=== PATIENT | male | born 1935 | race African-American/Black ===

== ENCOUNTER 2016-03-27 20:07 | Inpatient (IN) | payer MEDICARE, OTHER ==
--- NOTE | ~2016-03-27 | HP ---
History And Physical [facility] [address] [facility] [place] [place]. [address] NAME: MOI ARREOLA : 34 STATUS : ADM Azul PAT#: [id number] AGE: 80 ADM/REG DATE : 03/27/16 MR#: [id number] REPORT SERV DATE: 03/28/16 DICTATED BY: REYNALDO HERNANDEZ DATE: 03/28/16 REPORT STATUS : Draft TRANSCRIBED BY: MODL DATE: 03/28/16 DATE OF ADMISSION: 03/27/2016 CHIEF COMPLAINT: Fever and intractable cough. HISTORY OF PRESENT ILLNESS: This is an 80-year-old male, who presents to the emergency room at [facility] with severe intractable cough along with fever. History is obtained from the patient, and reviewing data available on the Glipho system. According to Mr. Arreola, he was in his usual state of health until yesterday when he woke up feeling poorly. He started having a febrile illness during the day and then started having a cough, which actually worsened to the point he could not even finish a sentence without coughing. His fevers increased despite the fact he took some [id number] medicines and he finally decided to come to the emergency room to be evaluated. In the emergency room, initial workup revealed he was positive for influenza A. As he is 80 years old, and also had a febrile illness along with severe intractable cough, Hospitalist Service is asked to admit him for further evaluation and treatment. At the time of my evaluation, he denied any chest pain or palpitations. He had no orthopnea. He had a severe intractable cough productive of yellowish-greenish purulent- appearing sputum, but denied any hemoptysis, night sweats, or weight loss. He denied any recent falls or loss of consciousness. He did have fevers and chills as mentioned above. No history of nausea, vomiting, diarrhea, hematemesis, hematochezia, or hematuria. No other history of recent travel or exposures. PAST MEDICAL HISTORY: Significant for history of chronic kidney disease, coronary artery disease with stent, COPD, hypertension, peptic ulcer disease with history of GI bleed, diabetes mellitus type 2. He has had back surgeries and transurethral resection of prostate as well. SOCIAL HISTORY: He does not smoke, drink, or use recreational drugs. FAMILY HISTORY: Noncontributory. MEDICATIONS: Medications at home were reviewed by me in the chart today and reordered by me. REVIEW OF SYSTEMS: As in history of present illness. All other systems were reviewed in detail and are quite unremarkable. PHYSICAL EXAMINATION: GENERAL: This is a very pleasant 80-year-old gentleman who is not in any acute distress. HEENT: His head is atraumatic and normocephalic. He is alert, awake, oriented to time, place, and person. Pupils are equal, reacting to light and accommodating. External ocular History And Physical [address] [address] NAME: MOI ARROELA : 34 STATUS : ADM Azul PAT#: [id number] AGE: 80 ADM/REG DATE : 03/27/16 MR#: [id number] REPORT SERV DATE: 03/28/16 DICTATED BY: REYNALDO HERNANDEZ DATE: 03/28/16 REPORT STATUS : Draft TRANSCRIBED BY: LEVI DATE: 03/28/16 muscles are intact. Membranes are moist and pink. Sclera is nonicteric. NECK: Supple with no jugular venous distention, lymphadenopathy, or thyromegaly. LUNGS: Auscultation of his lungs revealed coarse breath sounds bilaterally without any rales; however, it is hard to auscultate with his persistent coughing. HEART: Heart sounds were regular with no murmurs, rubs, or gallops. ABDOMEN: Soft and nontender. Bowel sounds are present. EXTREMITIES: No cyanosis, clubbing, or edema. NEUROLOGIC: Grossly intact. No focal sensory or motor deficits. Higher functions appeared intact. VITAL SIGNS: His temperature today was 99.7, pulse 106, respirations were 20 a minute, and blood pressure was 158/74, and oxygen saturations were 95%, breathing 2 L of oxygen. LABORATORY DATA: Reviewed on the Glipho system showed a sodium of 140, potassium was 4.2, chloride 106 and CO2 of 25, BUN was 21 with a creatinine of 1.64 which is about his baseline. His blood glucose was 125. His troponin today was 0.02, and BNP was 27.2. CBC showed a white blood cell count of 5, hemoglobin was 11.8, hematocrit 35, and platelet count was 140,000. His prothrombin time was 14.6 with an INR of 1.2. Influenza A was positive and B was negative. Urinalysis was not performed today. Films of the chest x-ray were reviewed by me on the PACS today and interpreted by me. Per my interpretation, there is no lobar consolidations or pleural effusions seen. A 12-lead EKG done in the emergency room was reviewed and interpreted by me. There is sinus tachycardia at a rate of [address] elevations or depressions. IMPRESSION: 1. Febrile illness. 2. Intractable cough. 3. Influenza. 4. Chronic kidney disease. 5. Diabetes mellitus. 6. Coronary artery disease with stent placement. 7. Chronic obstructive pulmonary disease. 8. Uncontrolled hypertension. PLAN: We will admit Mr. Arreola to the Hospitalist Service for a 24-hour observation period. We will obtain cultures, start him on Tamiflu which he was started in the ER. We will hold off on antibiotics at this time. Check his procalcitonin levels. We will start him on IV fluids for volume replacement and offer Tylenol for fever. We will follow his chemistry, electrolytes in the morning and replete as needed. We will also establish blood sugar control with NovoLog given subcutaneously per sliding scale and check his A1c. He will be History And Physical [address] [address] NAME: MOI ARREOLA : 34 STATUS : ADM Azul PAT#: [id number] AGE: 80 ADM/REG DATE : 03/27/16 MR#: [id number] REPORT SERV DATE: 03/28/16 DICTATED BY: REYNALDO HERNANDEZ DATE: 03/28/16 REPORT STATUS : Draft TRANSCRIBED BY: LEVI DATE: 03/28/16 on unfractionated heparin for DVT prophylaxis while he is here. We will also continue all other home medications that he is on. For his intractable cough I will offer Robitussin with Codeine as well. I have discussed the above plans with the patient. His questions were answered. He is agreeable to the above recommendations. Hospitalist Service will be following him during his stay here. /LEVI Reynaldo Hernandez M.D. / [id number] CC: Mina Chacon MD
--- NOTE | ~2016-03-27 | DS ---
Discharge Summary [facility] [address] [place]. [address] NAME: MOI EAST : 34 STATUS : DIS IN PAT#: [id number] AGE: 80 ADM/REG DATE : 03/29/16 MR#: [id number] REPORT SERV DATE: 04/03/16 DICTATED BY: MARISOL FARMER DATE: 04/02/16 REPORT STATUS : Draft TRANSCRIBED BY: LEVI DATE: 04/02/16 ADMISSION DATE: 03/29/2016 DISCHARGE DATE: 04/02/2016 CONSULTATION: None. PROCEDURES: None. DISCHARGE DIAGNOSES: 1. Influenza A. 2. Influenza with pneumonia. 3. Chronic kidney disease stage 3. 4. Coronary artery disease with history of stent placement. 5. Chronic obstructive pulmonary disease. 6. Hypertension. 7. Diabetes mellitus type 2. 8. History of vocal cord paralysis. 9. History of vocal cord polyps, status post polypectomy. 10.Singultus. 11.Chronic cough. 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 13.History of beryllium exposure. DISCHARGE CONDITION: Stable. HISTORY OF PRESENT ILLNESS: For detailed HPI, please make reference to Dr. Pau Jacobs's dictation on 03/27/2016. In summary, this is an 80-year-old male with medical history significant for coronary artery disease with history of stent placement, chronic obstructive pulmonary disease, chronic cough, history of asbestos exposure, who presented to the hospital with complaints of intractable cough and fever. The patient was found to have a positive influenza A in the ER, hence the Hospitalist Service was contacted to admit the patient for further evaluation. HOSPITAL COURSE: Influenza A. The patient had positive influenza A test, was started on Tamiflu with significant improvement. The patient's temperatures subsequently subsided. However, patient continued to have persistent cough and shortness of breath, which raised concern for possible pneumonia. Influenza with pneumonia. Given the patient's worsening cough and significant shortness of breath, I did a CT scan of the chest that shows presence of new infiltrate concerning for pneumonia. The patient was started on broad-spectrum antibiotics. The patient's cough and shortness of breath improved. The patient's white blood cell remains within normal limits. Throughout the course of admission, the patient's oxygen level returned back to baseline. The patient was able to breathe comfortably on room air at the time of discharge. The Discharge Summary [facility] [address] [place]. [address] NAME: MOI EAST : 34 STATUS : DIS IN PAT#: [id number] AGE: 80 ADM/REG DATE : 03/29/16 MR#: [id number] REPORT SERV DATE: 04/03/16 DICTATED BY: MARISOL FARMER DATE: 04/02/16 REPORT STATUS : Draft TRANSCRIBED BY: LEVI DATE: 04/02/16 patient was then transitioned to p.o. antibiotics to complete a total of five days. Additional 5 days treatment at the time of discharge. The patient was advised to continue follow up with primary care physician. Chronic kidney disease stage 3. Throughout the course of this admission, the patient's creatinine remained at baseline of 1.2-1.5. At the time of discharge, the patient's creatinine was approximately 1.2. Given the patient's chronically elevated creatinine, the patient was advised to follow up with Nephrology as an outpatient. Diabetes mellitus. The patient's blood sugar was managed with insulin therapy during the course of this admission. At time of discharge, the patient was recommenced on home dose, was advised to continue diet control for patient's known diabetes. COPD exacerbation. The patient has a known history of COPD and also family history of chronic lung disease due to beryllium exposure. The patient was started on p.o. steroids. The patient's wheezing significantly improved. However, continues to have persistent dry cough. The patient was discharged home on antitussive medication and follow up with his lung specialist. History of vocal cord paralysis secondary to vocal cord polyp status post polypectomy. The patient continues to follow up with ENT specialist at [facility]. The patient was advised to continue follow up at the time of discharge. IMAGING: CT scan of the chest without contrast report, impression; 1. Bibasilar infiltrates, right greater than left including probably pneumonia. 2. Fluid in the costophrenic, left greater than right. 3. Small pericardial effusion. 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 DISCHARGE MEDICATIONS: 1. Amlodipine 5 mg p.o. daily. 2. Omnicef 300 mg p.o. b.i.d. for 5 days. 3. Tessalon Perles 200 mg p.o. t.i.d. 4. Plavix 75 mg p.o. daily. 5. Vitamin D 1000 units p.o. daily. 6. Digoxin 0.125 mg p.o. daily. 7. Dronedarone 400 mg tab p.o. b.i.d. 8. Zetia 10 mg p.o. daily. 9. Fenofibric acid 135 mg p.o. daily. 10.Tamsulosin 0.4 mg p.o. daily. 11.Flonase. 12.Aspirin. 13.Loratadine 10 mg p.o. daily. 14.Pulmicort Respules 0.5 mg inhalation twice a day. FOLLOWUP: The patient was advised to follow up with primary care physician and also follow up with his lung specialist as well as ENT doctors and also to make an appointment with Discharge Summary [address] [address] NAME: MOI EAST : 34 STATUS : DIS IN PAT#: [id number] AGE: 80 ADM/REG DATE : 03/29/16 MR#: [id number] REPORT SERV DATE: 04/03/16 DICTATED BY: MARISOL FARMER DATE: 04/02/16 REPORT STATUS : Draft TRANSCRIBED BY: LEVI DATE: 04/02/16 Nephrology as an outpatient. We will continue followup. DISCHARGE ACTIVITY: As tolerated. DISCHARGE DIET: Low-salt diet and diabetic diet. ADA 1800 calorie diet. A total of 35 minutes was used to prepare this patient's discharge. Reconcile medications and review the patient's medical record as well as advised the patient on discharge plans and followup. IOO/MODL Marisol Farmer MD / [id number] CC: MD Sonu Baker MD Mani Ravee, M.D.
[~2016-03-27 20:07] MED LIST: ASAB PO; ASMANEX 30110 MCG IN; C2 PO; C5 PO; CAT1 PO; CENTRUM SILVER PO; CENTRUM TAB1 TAB PO; CLEAR EYE1 OPH; CODEINE/GUAI1 ML PO; CORDARONE PO; COUMADIN4 MG PO; DIGITEK0.125 MG PO; DIGITEK0.25 MG PO; DIGOXIN; DRAMAMINE25 MG PO; DRONED400 PO; EYE DROPS OPH; FISH OIL1200 MG PO; FISH-EPA1000 MG PO; FLOMAX4 PO; GLYSET25 MG OR; GLYSET25 MG PO; GLYSET50 MG OR; GLYSET50 MG PO; LAN125 PO; LOMOTIL; LONOX2.5 MG PO; LORT7 PO; LUMIGAN2.5 ML OPH; MCZ25 PO; MUCINEX1200 MG PO; NASONEX NAS; NEXIUM40 PO; NORV5 PO; NYS500UDL PO; PEPTO-BISM524 MG/30 PO; PLAVIX PO; PRILO PO; PRILOSEC40 MG PO; PROAIR HFA INH; PROTONIX PO; PROVENTSOL INH; RED YEAS1 OR; RED YEAS1 PO; SPIRIVA INH; SPRIVA; SYMBICORT 160/41 INH INH; T300 PO; THEO24300 PO; TRILIPIX135 MG PO; TUMSROLL PO; V2 PO; VITAMIN C PO; VITAMIN C100 MG PO; VITAMIN D1000 UNI1 PO; VITAMIN D31000 UNIT PO; VITC500 PO; VITE PO; VITE1000 PO; ZETIA PO; [UNRECOGNIZED DRUG - REMARK]
[2016-03-27 21:24] LABS: INFLUENZA A SCREEN POSITIVE (NEGATIVE); INFLUENZA B SCREEN NEGATIVE (NEGATIVE)
[2016-03-27 21:30] LABS: BASOPHILS 0.2 %; BASOPHILS ABSOLUTE 0.01 10/3/uL (0.0-0.16); EOSINOPHILS 1.4 %; EOSINOPHILS ABSOLUTE 0.07 10/3/uL (0.0-0.53); HEMOGLOBIN 11.8 g/dL (13.6-17.8); LYMPHOCYTES 9.7 %; LYMPHOCYTES ABSOLUTE 0.48 10/3/uL (0.67-4.30); MEAN CORPUS HGB CONC 33.7 g/dL (32.0-36.0); MEAN CORPUSCULAR HEMOGLOB 29.4 pg (26.0-34.0); MEAN CORPUSCULAR VOLUME 87.3 fL (80-100); MEAN PLATELET VOLUME 11.1 fL (9.2-13.0); MONOCYTES 2.2 %; MONOCYTES ABSOLUTE 0.11 10/3/uL (0.21-1.20); NEUTROPHILS 86.5 %; NEUTROPHILS ABSOLUTE 4.28 10/3/uL (2.02-8.40); PLATELET COUNT 140 10/3/uL (150-400); RBC DISTRIBUTION WIDTH 14.2 % (12.0-16.0); RED CELL COUNT 4.01 10/6/uL (4.7-6.1)
[2016-03-27 21:32] LABS: MANUAL DIFF NO %
[2016-03-27 21:39] LABS: INTERNATIONAL NORMAL RATI 1.2 UNITS (-); PARTIAL THROMBO TIME 24.2 SEC (22.5-37.2); PROTIME (NOT ORD) 14.6 SEC (12.0-14.5)
[2016-03-27 21:47] LABS: PLATELET ESTIMATE SLT DEC (ADEQUATE)
[2016-03-27 21:48] LABS: OVALOCYTES 1+ (3-10/OIF) (0-2/OIF); SPHEROCYTES FEW (3-10/OIF)
[2016-03-27 21:50] LABS: BUN (BLOOD UREA NITROGEN) 21 MG/DL (6-23); CALCIUM, SERUM 8.8 MG/DL (8.5-10.4); CHEST PAIN PROFILE TAT 0 Hrs 24 Mins; CHLORIDE, SERUM 106 MMOL/L (96-112); CO2 (CARBON DIOXIDE) 25 MMOL/L (24-34); CREATININE 1.64 MG/DL (0.70-1.30); GFR AFRICAN AMERICAN 45 ML/MIN (>=60); GFR NON AFRICAN AMERICAN 39 ML/MIN (>=60); GLUCOSE, SERUM 125 MG/DL (60-99); POTASSIUM, SERUM 4.2 MMOL/L (3.5-5.3); SODIUM, SERUM 140 MMOL/L (135-148); TROPONIN I <0.02 NG/ML (<0.05)
[2016-03-27] MEDS ORDERED: FLOMAX4 PO (23:39)
[2016-03-27] MEDS ORDERED: DRONED400 PO (23:39)
[2016-03-27] MEDS ORDERED: T300 PO (23:40)
[2016-03-27] MEDS ORDERED: NORV5 PO (23:40)
[2016-03-27] MEDS ORDERED: LAN125 PO (23:40)
[2016-03-27] MEDS ORDERED: TRILIPIX135 MG PO (23:40)
[2016-03-27] MEDS ORDERED: PLAVIX PO (23:41)
[2016-03-27] MEDS ORDERED: ZETIA PO (23:41)
[2016-03-27] MEDS ORDERED: VITAMIN D31000 UNIT PO (23:42)
[2016-03-27] MEDS ORDERED: RED YEAS1 PO (23:42)
[2016-03-27] MEDS ORDERED: CENTRUM PO (23:42)
[2016-03-27] MEDS ORDERED: GLYSET50 MG PO (23:42)
[2016-03-27] MEDS ORDERED: PROAIR HFA INH (23:43)
[2016-03-27] MEDS ORDERED: FISH OIL1200 MG PO (23:43)
[2016-03-27] MEDS ORDERED: VITC500 PO (23:43)
[2016-03-27] MEDS ORDERED: VITE PO (23:43)
[2016-03-27] MEDS ORDERED: PULRESP.5 INH (23:44)
[2016-03-27] MEDS ORDERED: PERFOROM INH (23:44)
[2016-03-27] MEDS ORDERED: NASONEX NAS (23:44)
[2016-03-27] MEDS ORDERED: M-END PE PO (23:46)
[2016-03-28 05:54] LABS: MANUAL DIFF YES %; MEAN CORPUS HGB CONC 34.3 g/dL (32.0-36.0); MEAN CORPUSCULAR HEMOGLOB 30.5 pg (26.0-34.0); MEAN CORPUSCULAR VOLUME 89.1 fL (80-100); PLATELET COUNT 141 10/3/uL (150-400); RED CELL COUNT 3.93 10/6/uL (4.7-6.1); WHITE BLOOD CELLS 5.5 10/3/uL (4.5-10.5)
[2016-03-28 06:18] LABS: BAND NEUTROPHILS 4 %; BUN (BLOOD UREA NITROGEN) 20 MG/DL (6-23); CALCIUM, SERUM 9.2 MG/DL (8.5-10.4); CHLORIDE, SERUM 106 MMOL/L (96-112); CO2 (CARBON DIOXIDE) 23 MMOL/L (24-34); CREATININE 1.54 MG/DL (0.70-1.30); GFR AFRICAN AMERICAN 48 ML/MIN (>=60); GFR NON AFRICAN AMERICAN 42 ML/MIN (>=60); GLUCOSE, SERUM 125 MG/DL (60-99); LYMPHOCYTES 6 %; LYMPHOCYTES ABSOLUTE (CALC) 0.33 10/3/uL (0.67-4.30); MONOCYTES 3 %; MONOCYTES ABSOLUTE (CALC) 0.17 10/3/uL (0.21-1.20); NEUTROPHILS ABSOLUTE (CALC) 5.01 10/3/uL (2.02-8.40); POTASSIUM, SERUM 4.1 MMOL/L (3.5-5.3); SEGMENTED NEUTROPHIL (0) 87 %; SODIUM, SERUM 139 MMOL/L (135-148); TOTAL NUCLEATED CELLS 100
[2016-03-28 06:19] LABS: PLATELET ESTIMATE ADQ (ADEQUATE); RBC MORPHOLOGY NORM (NORMAL)
[2016-03-28 06:22] LABS: PHOSPHORUS, SERUM 1.5 MG/DL (2.5-4.5)
[2016-03-29 05:18] LABS: BASOPHILS 0 %; EOSINOPHILS 0 %; HEMATOCRIT 36.4 % (40.0-51.0); HEMOGLOBIN 12.3 g/dL (13.6-17.8); IMMATURE GRANULOCYTES 0.2 %; IMMATURE GRANULOCYTES ABSOLUTE 0.01 10/3/uL (0.0-0.11); LYMPHOCYTES 6.1 %; LYMPHOCYTES ABSOLUTE 0.34 10/3/uL (0.67-4.30); MANUAL DIFF NO %; MEAN CORPUS HGB CONC 33.8 g/dL (32.0-36.0); MEAN CORPUSCULAR HEMOGLOB 29.9 pg (26.0-34.0); MEAN CORPUSCULAR VOLUME 88.6 fL (80-100); MEAN PLATELET VOLUME 10.7 fL (9.2-13.0); MONOCYTES 6.1 %; MONOCYTES ABSOLUTE 0.34 10/3/uL (0.21-1.20); NEUTROPHILS 87.6 %; NEUTROPHILS ABSOLUTE 4.87 10/3/uL (2.02-8.40); PLATELET COUNT 124 10/3/uL (150-400); RBC DISTRIBUTION WIDTH 13.9 % (12.0-16.0); RED CELL COUNT 4.11 10/6/uL (4.7-6.1); WHITE BLOOD CELLS 5.6 10/3/uL (4.5-10.5)
[2016-03-29 05:32] LABS: ALBUMIN 3.2 G/DL (3.5-5.0); BUN (BLOOD UREA NITROGEN) 20 MG/DL (6-23); CALCIUM, SERUM 8.8 MG/DL (8.5-10.4); CHLORIDE, SERUM 105 MMOL/L (96-112); CO2 (CARBON DIOXIDE) 24 MMOL/L (24-34); CREATININE 1.53 MG/DL (0.70-1.30); GFR AFRICAN AMERICAN 49 ML/MIN (>=60); GFR NON AFRICAN AMERICAN 42 ML/MIN (>=60); POTASSIUM, SERUM 3.9 MMOL/L (3.5-5.3); SODIUM, SERUM 138 MMOL/L (135-148)
[2016-03-29 05:34] LABS: GLUCOSE, SERUM 190 MG/DL (60-99); PHOSPHORUS, SERUM 2.5 MG/DL (2.5-4.5)
[2016-03-30 09:18] LABS: BE (BASE EXCESS) 0.9 MEQ/L (0 +/- 2.5); CARBOXYHEMOGLOBIN 0.7 % (0-3); DEVICE NC; HCO3 (ACTUAL BICARBONATE) 25.4 MEQ/L (23-27); INSTRUMENT SERIAL # 8083; METHEMOGLOBIN 0.1 % (0-3); O2 CONTENT 17.1 VOL% (18-24); PCO2 (CO2 TENSION) 40 MMHG (35-45); PO2 (O2 TENSION) 68 MMHG (79-93); SAMPLE Arterial; pH 7.42 (7.37-7.43)
[2016-03-30 09:19] LABS: ALLENS TEST Pos
[2016-03-30 09:26] LABS: BASOPHILS 0.1 %; BASOPHILS ABSOLUTE 0.01 10/3/uL (0.0-0.16); EOSINOPHILS 0 %; HEMATOCRIT 35.9 % (40.0-51.0); HEMOGLOBIN 12.4 g/dL (13.6-17.8); IMMATURE GRANULOCYTES 0.3 %; IMMATURE GRANULOCYTES ABSOLUTE 0.03 10/3/uL (0.0-0.11); LYMPHOCYTES 7.2 %; LYMPHOCYTES ABSOLUTE 0.84 10/3/uL (0.67-4.30); MEAN CORPUS HGB CONC 34.5 g/dL (32.0-36.0); MEAN CORPUSCULAR HEMOGLOB 30.2 pg (26.0-34.0); MEAN CORPUSCULAR VOLUME 87.3 fL (80-100); MONOCYTES 5.9 %; MONOCYTES ABSOLUTE 0.69 10/3/uL (0.21-1.20); NEUTROPHILS 86.5 %; NEUTROPHILS ABSOLUTE 10.17 10/3/uL (2.02-8.40); PLATELET COUNT 138 10/3/uL (150-400); RBC DISTRIBUTION WIDTH 14.2 % (12.0-16.0); RED CELL COUNT 4.11 10/6/uL (4.7-6.1)
[2016-03-30 09:27] LABS: MANUAL DIFF NO %; WHITE BLOOD CELLS 11.7 10/3/uL (4.5-10.5)
[2016-03-30 10:05] LABS: ALBUMIN 3.2 G/DL (3.5-5.0); CALCIUM, SERUM 8.6 MG/DL (8.5-10.4); CHLORIDE, SERUM 103 MMOL/L (96-112); CO2 (CARBON DIOXIDE) 26 MMOL/L (24-34); CREATININE 1.72 MG/DL (0.70-1.30); GFR AFRICAN AMERICAN 42 ML/MIN (>=60); GFR NON AFRICAN AMERICAN 36 ML/MIN (>=60); PHOSPHORUS, SERUM 2.3 MG/DL (2.5-4.5); POTASSIUM, SERUM 3.8 MMOL/L (3.5-5.3); SODIUM, SERUM 142 MMOL/L (135-148)
[2016-03-30 10:06] LABS: BUN (BLOOD UREA NITROGEN) 28 MG/DL (6-23); GLUCOSE, SERUM 103 MG/DL (60-99)
[2016-03-31 08:44] LABS: HEMOGLOBIN 11.3 g/dL (13.6-17.8); MANUAL DIFF YES %; MEAN CORPUS HGB CONC 33.2 g/dL (32.0-36.0); MEAN CORPUSCULAR HEMOGLOB 29.7 pg (26.0-34.0); MEAN CORPUSCULAR VOLUME 89.5 fL (80-100); MEAN PLATELET VOLUME 10.9 fL (9.2-13.0); PLATELET COUNT 133 10/3/uL (150-400); RBC DISTRIBUTION WIDTH 14.3 % (12.0-16.0); WHITE BLOOD CELLS 9.5 10/3/uL (4.5-10.5)
[2016-03-31 08:52] LABS: ALBUMIN 2.7 G/DL (3.5-5.0); BUN (BLOOD UREA NITROGEN) 24 MG/DL (6-23); CALCIUM, SERUM 8.3 MG/DL (8.5-10.4); CHLORIDE, SERUM 108 MMOL/L (96-112); CO2 (CARBON DIOXIDE) 28 MMOL/L (24-34); CREATININE 1.42 MG/DL (0.70-1.30); GFR AFRICAN AMERICAN 53 ML/MIN (>=60); GFR NON AFRICAN AMERICAN 46 ML/MIN (>=60); GLUCOSE, SERUM 98 MG/DL (60-99); PHOSPHORUS, SERUM 2.5 MG/DL (2.5-4.5); SODIUM, SERUM 143 MMOL/L (135-148)
[2016-03-31 09:57] LABS: BAND NEUTROPHILS 8 %; LYMPHOCYTES 8 %; LYMPHOCYTES ABSOLUTE (CALC) 0.76 10/3/uL (0.67-4.30); MONOCYTES 6 %; MONOCYTES ABSOLUTE (CALC) 0.57 10/3/uL (0.21-1.20); NEUTROPHILS ABSOLUTE (CALC) 8.17 10/3/uL (2.02-8.40); OVALOCYTES 1+ (3-10/OIF) (0-2/OIF); PLATELET ESTIMATE SLT DEC (ADEQUATE); SEGMENTED NEUTROPHIL (0) 78 %; TOTAL NUCLEATED CELLS 100; TOXIC GRANULATION 1+
[2016-04-01 07:14] LABS: BASOPHILS 0.1 %; BASOPHILS ABSOLUTE 0.01 10/3/uL (0.0-0.16); EOSINOPHILS 0 %; HEMATOCRIT 34.3 % (40.0-51.0); HEMOGLOBIN 11.4 g/dL (13.6-17.8); IMMATURE GRANULOCYTES 0.4 %; IMMATURE GRANULOCYTES ABSOLUTE 0.04 10/3/uL (0.0-0.11); LYMPHOCYTES 10.5 %; LYMPHOCYTES ABSOLUTE 0.96 10/3/uL (0.67-4.30); MEAN CORPUS HGB CONC 33.2 g/dL (32.0-36.0); MEAN CORPUSCULAR HEMOGLOB 29.5 pg (26.0-34.0); MEAN CORPUSCULAR VOLUME 88.6 fL (80-100); MEAN PLATELET VOLUME 10.4 fL (9.2-13.0); MONOCYTES 8.1 %; MONOCYTES ABSOLUTE 0.74 10/3/uL (0.21-1.20); NEUTROPHILS 80.9 %; NEUTROPHILS ABSOLUTE 7.42 10/3/uL (2.02-8.40); PLATELET COUNT 131 10/3/uL (150-400); RBC DISTRIBUTION WIDTH 14.4 % (12.0-16.0); RED CELL COUNT 3.87 10/6/uL (4.7-6.1); WHITE BLOOD CELLS 9.2 10/3/uL (4.5-10.5)
[2016-04-01 07:25] LABS: MANUAL DIFF NO %
[2016-04-01 07:30] LABS: ALBUMIN 2.7 G/DL (3.5-5.0); BUN (BLOOD UREA NITROGEN) 27 MG/DL (6-23); CALCIUM, SERUM 8.6 MG/DL (8.5-10.4); CHLORIDE, SERUM 108 MMOL/L (96-112); CO2 (CARBON DIOXIDE) 28 MMOL/L (24-34); CREATININE 1.53 MG/DL (0.70-1.30); GFR AFRICAN AMERICAN 49 ML/MIN (>=60); GFR NON AFRICAN AMERICAN 42 ML/MIN (>=60); GLUCOSE, SERUM 109 MG/DL (60-99); PHOSPHORUS, SERUM 2.7 MG/DL (2.5-4.5); SODIUM, SERUM 144 MMOL/L (135-148)
[2016-04-02 07:03] LABS: BASOPHILS 0.2 %; BASOPHILS ABSOLUTE 0.02 10/3/uL (0.0-0.16); EOSINOPHILS 0 %; HEMATOCRIT 34.1 % (40.0-51.0); HEMOGLOBIN 11.7 g/dL (13.6-17.8); IMMATURE GRANULOCYTES ABSOLUTE 0.08 10/3/uL (0.0-0.11); LYMPHOCYTES 14.6 %; LYMPHOCYTES ABSOLUTE 1.17 10/3/uL (0.67-4.30); MEAN CORPUS HGB CONC 34.3 g/dL (32.0-36.0); MEAN CORPUSCULAR HEMOGLOB 30.2 pg (26.0-34.0); MEAN CORPUSCULAR VOLUME 88.1 fL (80-100); MEAN PLATELET VOLUME 10.8 fL (9.2-13.0); MONOCYTES 7.8 %; MONOCYTES ABSOLUTE 0.63 10/3/uL (0.21-1.20); NEUTROPHILS 76.4 %; NEUTROPHILS ABSOLUTE 6.14 10/3/uL (2.02-8.40); PLATELET COUNT 154 10/3/uL (150-400); RBC DISTRIBUTION WIDTH 14.4 % (12.0-16.0); RED CELL COUNT 3.87 10/6/uL (4.7-6.1)
[2016-04-02 07:05] LABS: MANUAL DIFF NO %
[2016-04-02 07:19] LABS: ALBUMIN 2.6 G/DL (3.5-5.0); BUN (BLOOD UREA NITROGEN) 24 MG/DL (6-23); CALCIUM, SERUM 8.6 MG/DL (8.5-10.4); CHLORIDE, SERUM 107 MMOL/L (96-112); CO2 (CARBON DIOXIDE) 28 MMOL/L (24-34); CREATININE 1.29 MG/DL (0.70-1.30); GFR AFRICAN AMERICAN 60 ML/MIN (>=60); GFR NON AFRICAN AMERICAN 52 ML/MIN (>=60); GLUCOSE, SERUM 154 MG/DL (60-99); PHOSPHORUS, SERUM 2.2 MG/DL (2.5-4.5); POTASSIUM, SERUM 4.2 MMOL/L (3.5-5.3); SODIUM, SERUM 143 MMOL/L (135-148)
[2016-04-02] MEDS ORDERED: TESS PO (12:05)
[2016-04-02] MEDS ORDERED: FLONASE NAS (12:06)
[2016-04-02] MEDS ORDERED: CLARIT10 PO (12:20)
[2016-04-02] MEDS ORDERED: MVI PO (12:20)
[2016-04-02] MEDS ORDERED: PROTONIX PO (12:21)
[2016-04-02] MEDS ORDERED: OMNICEF300 PO (12:23)
[2016-04-02] MEDS ORDERED: P20 PO (12:26)
== END 2016-04-02 14:40 | disposition home or self-care (01) | DRG 190 ==
LOC: ER 20:07 → 6NO 23:58
PROVIDERS: Emergency Medicine; Hospitalist; Internal Medicine Pulmonary Disease
DX: J44.1 Chronic obstructive pulmonary disease with (acute) exacerbation (principal); J10.00 Influenza due to other identified influenza virus with unspecified type of pneumonia; J38.02 Paralysis of vocal cords and larynx, bilateral; E11.22 Type 2 diabetes mellitus with diabetic chronic kidney disease; N18.3 Chronic kidney disease, stage 3 (moderate); J44.0 Chronic obstructive pulmonary disease with (acute) lower respiratory infection; I25.10 Atherosclerotic heart disease of native coronary artery without angina pectoris; I12.9 Hypertensive chronic kidney disease with stage 1 through stage 4 chronic kidney disease, or unspecified chronic kidney disease; R09.02 Hypoxemia; K27.9 Peptic ulcer, site unspecified, unspecified as acute or chronic, without hemorrhage or perforation; N18.9 Chronic kidney disease, unspecified; Z87.11 Personal history of peptic ulcer disease; Z77.090 Contact with and (suspected) exposure to asbestos; Z95.5 Presence of coronary angioplasty implant and graft; Z79.02 Long term (current) use of antithrombotics/antiplatelets
CPT/HCPCS: 36600; 71010; 71250; 80048; 80069; 82330; 82803; 82805; 82947; 82962; 83735; 83880; 84100; 84132; 84295; 84484; 85014; 85025; 85610; 85730; 87040; 87070; 87205; 87449; 87804; 93005; 94640; 99285; A9270-GY; J0692; J2405; J3370